=== PATIENT | female | born 1950 | race Two or more races ===

== ENCOUNTER 2022-02-13 13:27 | Emergency (ER) | payer OTHER ==
[~2022-02-13] VITALS: Ht 167.6 cm; Wt 72.6 kg
[2022-02-13] MEDS ORDERED: FLOVENT DISKU250 MCG IH (14:04)
[2022-02-13] MEDS ORDERED: IRBESARTAN300 MG PO (14:05)
[2022-02-13] MEDS ORDERED: SIMVASTATIN20 MG PO (14:05)
[2022-02-13] MEDS ORDERED: ELIQUIS5 MG PO (14:06)
[2022-02-13] MEDS ORDERED: AMIODARONE HCL100 MG PO (14:06)
[2022-02-13] MEDS ORDERED: ISOSORBIDE DINI30 MG PO (14:07)
[2022-02-13] MEDS ORDERED: LEVOXYL75 MCG PO (14:07)
[2022-02-13] MEDS ORDERED: SINGULAIR 10MG10 MG PO (14:07)
== END 2022-02-13 17:14 | disposition home or self-care (01) ==
LOC: ER 13:27
DX: R06.02 Shortness of breath (principal)

== ENCOUNTER 2025-05-15 07:04 | Outpatient (CLI) | payer OTHER ==
[~2025-05-15 07:04] MED LIST: AMIODARONE HCL100 MG PO; ELIQUIS5 MG PO; FLOVENT DISKU250 MCG IH; IRBESARTAN300 MG PO; ISOSORBIDE DINI30 MG PO; LEVOXYL75 MCG PO; SIMVASTATIN20 MG PO; SINGULAIR 10MG10 MG PO
== END 2025-05-15 07:05 | disposition home or self-care (01) ==
LOC: NUCLEAR 07:04
DX: E21.0 Primary hyperparathyroidism (principal)